=== PATIENT | female | born 1995 | race African-American/Black ===

== ENCOUNTER 2023-05-10 14:47 | Emergency (ER) | payer OTHER, SELFPAY ==
[2023-05-10 14:54] VITALS: BP 122/86
[2023-05-10 15:18] LABS: % Basophils 1.1 % (0-2); % Eosinophils 3.8 % (0-6); % Immature Granulocytes 0.2 % (0-0.5); % Lymphocytes 54.2 % (20.5-51.1); % Monocytes 8.8 % (1.7-9.3); % Neutrophils 31.9 % (42.2-75.2); Absolute Basophils 0.1 10^3/uL (0-0.2); Absolute Eosinophils 0.2 10^3/uL (0-0.7); Absolute Monocytes 0.5 10^3/uL (0.1-0.6); Absolute Neutrophils 1.8 10^3/uL (1.4-6.5); Hemoglobin 13.3 g/dL (12.0-16.0); Mean Corp Hgb Conc. 34.1 g/dL (33.0-37.0); Mean Corpuscular Hgb 32.3 pg (27.0-31.0); Mean Corpuscular Volume 94.7 fL (81.0-99.0); Mean Platelet Volume 9.3 fL (7.4-10.4); Nucleated Red Blood Cells % 0 %; Platelet Count 358 10^3/uL (130-400); Red Blood Cell Count 4.12 10^6/uL (4.20-5.40); Red Cell Dist. Width 11.8 % (11.5-14.5); White Blood Cell Count 5.6 10^3/uL (4.8-10.8)
--- NOTE | 2023-05-10 15:24 | ED.GENMED ---
History of Present Illness
General
Chief Complaint: Musculo-Skeletal Complaint
Time Seen by Provider: 05/10/23 15:09
Travel History
Have you had any contact with someone who has COVID-19?: No
Do you have any symptoms of coronavirus? Fever > 100 degrees, chills, cough, shortness of breath, sore throat, loss of taste or smell, muscle aches, or headache?: No
History of Present Illness
History of Present Illness:
27-year-old female with history of A-fib presents the emergency department for evaluation of bilateral leg pain has been ongoing for the past 6 months. She reports pain to the upper gluteal region radiating to the hips and occasionally down to the
feet. Pain is worse with prolonged sitting or prolonged walking. She has been taking gabapentin as well as occasional anti-inflammatories without relief. Has not seen her primary care physician for this in quite some time. Denies any falls or
trauma. Denies any loss of bladder or bowel function. No night sweats or weight loss
Review of Systems
Review of Systems
Allergies reviewed?: Yes
All Other Systems: ROS reviewed and negative except as documented in HPI and ROS
Phy Exam
Physical Exam
Physical Exam:
GEN: Well appearing, writhing in pain, unable to sit still
HEENT: Oral mucosa moist, no scleral icterus
Cardiac: Regular rate
Lung: No respiratory distress, no tachypnea
MSK: No gross deformity or injuries. Tender diffusely along bilateral paraspinous musculature into the gluteal region, negative straight leg raise bilaterally
Skin: Good color, no pallor or jaundice, no rashes
Neuro: AO x3, moves all extremities freely. Bilateral lower extremity strength and sensation is intact in all march and symmetric
Psych: Calm, cooperative
Course
Orders/Labs/Results
Orders:
Orders
05/10/23 14:58
Test Result ONCE
05/10/23 15:01
CMP [Comprehensive Metabolic Panel] Urgent
Complete Blood Count/With Diff Urgent
HCG, Serum Qualitative Screen Urgent
05/10/23 15:55
Acetaminophen [Tylenol] 650 mg PO NOW STA
Ketorolac [Toradol] 30 mg IM NOW STA
Lidocaine [Lidocaine 4% Patch] 1 patch TOPICAL NOW STA
Abnormal Lab Results
05/10/23
15:01
RBC 4.12 L 10^6/uL
(4.20-5.40)
MCH 32.3 H pg
(27.0-31.0)
Neutrophils % 31.9 L %
(42.2-75.2)
Lymphocytes % 54.2 H %
(20.5-51.1)
05/10/23 15:01
05/10/23 15:01
Vital Signs
Initial and Last Documented VS:
Initial Vital Signs
Temp Pulse Resp BP Pulse Ox
98.2 F 98 16 122/86 98
05/10/23 14:54 05/10/23 14:54 05/10/23 14:54 05/10/23 14:54 05/10/23 14:54
Last Documented Vital Signs
Temp Pulse Resp BP Pulse Ox
98.2 F 80 16 122/86 96
05/10/23 14:54 05/10/23 16:38 05/10/23 14:54 05/10/23 14:54 05/10/23 16:38
MDM/Problems Addressed
MDM/Problems Addressed:
Suspect acute lumbar radiculopathy. Has no red flag neurologic symptoms warranting emergent MRI. Given that she has been failing anti-inflammatories we will try course of steroids, encouraged her to see her primary care physician to discuss an
outpatient MRI given the duration of her symptoms
*Critical Care Note
Total Time (30-74mins, 75-104mins- exclusive of procedures): Not Applicable
ED Attending Note
-
Portions of this chart may have been created with voice recognition software.� Occasional wrong word or��sound alike� substitutions may have occurred due to the inherent limitations of voice recognition software.
Discharge Plan
Departure
Patient Disposition: Home (Routine Discharge)
Date of Disposition: 05/10/23
Time of Disposition: 16:26
Patient with high blood pressure during this ER visit?: No
Discharge Problem:
Acute lumbar radiculopathy
Instructions: Low Back Pain ED
Prescriptions:
New
methylprednisolone [Medrol (Jose)] 4 mg tablets,dose pack
See Rx Instructions .ROUTE .COMPLEX Qty: 21 0RF
Rx Instructions:
orally per package directions
Referrals:
Dima Reyez MD [Family Provider] -
Activity Restrictions/Additional Instructions:
Discuss getting a lumbar MRI with your primary care physician
Interventions
Interventions:
*Risk Screen - Suicide Last Done: 05/10/23 16:38
*General Assessment Last Done: 05/10/23 14:54
*Neglect/Abuse Screening Last Done: 05/10/23 16:38
*ED COVID-19 Vaccine History Last Done: 05/10/23 14:54
*Nursing Disposition Last Done: 05/10/23 16:38
ED-Musculoskeletal Assessment Last Done: 05/10/23 15:13
Discharge Date and Time
Discharge Date/Time: 05/10/23 16:39
[2023-05-10 15:28] LABS: ALT (SGPT) 13 U/L (0-35); AST (SGOT) 19 U/L (14-36); Albumin 4.3 g/dl (3.5-5.0); Alkaline Phosphatase 45 U/L (38-126); Blood Urea Nitrogen 14 mg/dl (7-17); Calcium 10.1 mg/dl (8.4-10.2); Carbon Dioxide 30 mmol/L (22-30); Chloride 100 mmol/L (98-107); Glucose 93 mg/dl (70-99); Potassium 4.1 mmol/L (3.5-5.1); Sodium 136 mmol/L (135-145); Total Protein 7.2 g/dl (6.3-8.2); eGFR > 60.00
[2023-05-10 15:36] LABS: HCG, Serum Qualitative Screen Negative
[2023-05-10] MEDS: LIDOCAINE 4% PATCH 1 PATCH TOPICAL (16:22)
[2023-05-10] MEDS: TYLENOL 650 MG PO (16:23)
== END 2023-05-10 16:39 | disposition home or self-care (01) ==
LOC: EMR 14:47
PROVIDERS: Emergency Medicine; EMERGENCY PHYSICIAN Emergency Medicine; FAMILY PHYSICIAN Internal Medicine
DX: M54.16 Radiculopathy, lumbar region (principal); I48.91 Unspecified atrial fibrillation
CPT/HCPCS: 99283; 80053; 84703; 85025

== ENCOUNTER 2023-05-25 09:15 | Emergency (ER) | payer OTHER, SELFPAY ==
--- NOTE | 2023-05-25 10:04 | ED.GENMED ---
History of Present Illness
General
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
Source: patient
Time Seen by Provider: 05/25/23 10:01
Nursing documentation reviewed up to this point in time: agreed with
Travel History
Have you had any contact with someone who has COVID-19?: No
Do you have any symptoms of coronavirus? Fever > 100 degrees, chills, cough, shortness of breath, sore throat, loss of taste or smell, muscle aches, or headache?: No
History of Present Illness
History of Present Illness:
This is a 27-year-old female with no past medical history presenting emergency department today with intermittent vaginal pain that started yesterday. She states that she is currently on her. And nearing the end of her menstrual cycle, when she
went to pull out her tampon yesterday and started to experience a lot of sharp pain an hour later. Patient states that when she pulled out the tampon, the tampon was fully intact and she denies any vaginal foreign body. Patient states that the
pain comes multiple times per day, and she states that the last time she had pain was about an hour ago. She states that the pain lasts 1 to 2 minutes. She denies any pelvic pain, abdominal pain, fevers or chills, dysuria, chance of STD/STI,
chance of . She states that she recently started using a new vaginal wash about a week ago and has been using it every single day. Patient denies any vaginal puritis.
Review of Systems
Review of Systems
All Other Systems: ROS reviewed and negative except as documented in HPI and ROS
Phy Exam
Physical Exam
Physical Exam:
General: Patient is well-appearing in no acute distress
Skin: Warm and dry, no rashes or lesions
Head: normocephalic, atraumatic
Cardiac: Regular rate and rhythm
Pulm: Normal respiratory effort
Abdomen: Abdomen is nondistended, nontender, no palpable masses
Genitourinary: External--No vulvar lesions or masses, no erythema. Scant blood seen at vaginal introitus. No adnexal tenderness. Internal-- Pain with speculum insertion. Vaginal mucosa pink with no lesions, no abrasions, erythema. No foreign body
within the vaginal vault. Menstrual blood seen at cervical os. No cervical lesions. No cervical motion tenderness.
Neuro: AAOx3. CN II-XII intact.
Course
Orders/Labs/Results
Orders:
Orders
05/25/23 10:22
Test Result ONCE
05/25/23 10:30
Beta Hcg Urine Qualitative Screen [HCG, Urine Qualitative Screen] Urgent
Date Specimen was Collected: 05/25/23
Time Specimen was Collected: 10:37
05/25/23 10:45
Urinalysis Reflex To Culture Urgent
Date Specimen was Collected: 05/25/23
Time Specimen was Collected: 10:37
Urine Microscopic Reflex Cult Urgent
Abnormal Lab Results
05/25/23
10:45
Ur Occult Blood Reflex 3+ A
(Negative)
Urine Bilirubin 1+ A
(Negative)
Urine RBC 3-6 A /HPF
(0-2)
Urine Bacteria (Reflex) Few A
(Negative)
Vital Signs
Initial and Last Documented VS:
Initial Vital Signs
Temp Pulse Resp Pulse Ox
98.2 F 71 18 100
05/25/23 09:21 05/25/23 09:21 05/25/23 09:21 05/25/23 09:21
Last Documented Vital Signs
Temp Pulse Resp BP Pulse Ox
98.2 F 64 18 128/67 100
05/25/23 09:21 05/25/23 11:53 05/25/23 11:53 05/25/23 11:53 05/25/23 11:53
MDM/Problems Addressed
Differential Diagnosis Includes:
Differentials include chemical contact vaginitis, contact dermatitis, UTI, vaginismus, bacterial vaginosis, pelvic floor spasm
MDM/Problems Addressed:
vaginal pain
Chronic conditions affecting care:
n/a
Acute Exacerbation and/or Progression of Chronic Illness:
n/a
*Pulse Oximetry
Patient hypoxic: no
*Critical Care Note
Total Time (30-74mins, 75-104mins- exclusive of procedures): Not Applicable
Data Reviewed
Review of Other/Old Records Reveals: Records (reviewed record from 05/10/23) and Discharge Summary (no recent hospitalizations in [facility] to review)
Source: patient and records
Patient Management
Escalation/DeEscalation of care consider admission/obs:
This is a 27-year-old female with no past medical history presenting emergency department today with intermittent vaginal pain that started yesterday. It started after taking out a dry tampon. She states that she also started using a new vaginal
wash recently, and is using it daily. Patient denies fevers or chills, abdominal pain, pelvic pain, dysuria, chance of STDs/STIs, vaginal foreign body. On exam, she has no labial lesions or masses, her vaginal mucosa is pink, there are no
abrasions or lesions, no erythema, and her cervix is without lesions. She did have some pain upon insertion of the speculum. Her urinalysis was negative for UTI. I suspect her current symptoms are a result of vaginal dryness from the vaginal wash
she has started using. I advised patient to hold off on using the wash for now to see if that improves her symptoms, and advised her to follow-up with her BONDING MACHINE TENDER. Patient states that she recently moved from [place] and her old OBGYN is
located within [place], so I provided her with a referral for new [facility]ING [facility]ACHINE T[facility] within [place]. She will follow up.
ED Attending Note
-
Portions of this chart may have been created with voice recognition software.� Occasional wrong word or��sound alike� substitutions may have occurred due to the inherent limitations of voice recognition software.
Discharge Plan
Departure
Patient Disposition: Home (Routine Discharge)
Date of Disposition: 05/25/23
Time of Disposition: 11:16
Patient with high blood pressure during this ER visit?: No
Condition: Good
Discharge Problem:
Vaginal pain
Instructions: Vaginitis, BLOOD PRESSURE
Prescriptions:
No Action
methylprednisolone [Medrol (Jose)] 4 mg tablets,dose pack
See Rx Instructions .ROUTE .COMPLEX Qty: 21 0RF
Rx Instructions:
orally per package directions
Referrals:
Dima Reyez MD [Family Provider] -
Dora Correia DO [Active] - Call in 1-3 days for appt
Activity Restrictions/Additional Instructions:
I have attached a referral for you for a new OBGYN here in [place]. Please call to schedule an appointment.
Please return to the emergency department should you have fevers or chills, difficulty urinating, pain with urination, pelvic pain, or other concerning signs or symptoms.
Please follow up with your primary care provider.
Interventions
Interventions:
*Risk Screen - Suicide Last Done: 05/25/23 09:21
*General Assessment Last Done: 05/25/23 09:21
*Neglect/Abuse Screening Last Done: 05/25/23 09:21
ED- Fall Risk Assessment Last Done: 05/25/23 11:54
*ED COVID-19 Vaccine History Last Done: 05/25/23 11:54
*Nursing Disposition Last Done: 05/25/23 11:54
ED-Female Genitourinary Assessment Last Done: 05/25/23 11:52
Discharge Date and Time
Discharge Date/Time: 05/25/23 11:55
[2023-05-25 10:44] LABS: Urine Albumin Negative (Neg - Trace); Urine Bilirubin 1+ (Negative); Urine Character Clear (Clear); Urine Color Yellow; Urine Glucose Negative (Negative); Urine Ketone Negative (Negative); Urine Leukocyte Negative (Negative); Urine Nitrite Negative (Negative); Urine Occult Blood 3+ (Negative); Urine Urobilinogen 1+ (Neg - 1+)
[2023-05-25 10:55] LABS: HCG, Urine Qualitative Screen Negative
[2023-05-25 11:10] LABS: Urine Mucus Few
[2023-05-25 11:11] LABS: Urine Bacteria Few (Negative); Urine White Cell None Seen /HPF (0-5)
[2023-05-25 11:53] VITALS: BP 128/67
== END 2023-05-25 11:55 | disposition home or self-care (01) ==
LOC: EMR 09:15
PROVIDERS: Physician Assistant; EMERGENCY PHYSICIAN Emergency Medicine; FAMILY PHYSICIAN Internal Medicine
DX: R10.2 Pelvic and perineal pain (principal)
CPT/HCPCS: 99282; 81003; 81015; 81025

== ENCOUNTER 2023-07-09 13:07 | Emergency (ER) | payer OTHER, SELFPAY ==
[2023-07-09 13:10] VITALS: BP 123/83
[2023-07-09 13:26] LABS: % Eosinophils 2.5 % (0-6); % Immature Granulocytes 0.2 % (0-0.5); % Lymphocytes 43.8 % (20.5-51.1); % Monocytes 7.8 % (1.7-9.3); % Neutrophils 44.7 % (42.2-75.2); Absolute Basophils 0.1 10^3/uL (0-0.2); Absolute Eosinophils 0.1 10^3/uL (0-0.7); Absolute Lymphocytes 2.1 10^3/uL (1.2-3.4); Absolute Monocytes 0.4 10^3/uL (0.1-0.6); Absolute Neutrophils 2.1 10^3/uL (1.4-6.5); Hematocrit 35.4 % (37.0-47.0); Mean Corp Hgb Conc. 33.9 g/dL (33.0-37.0); Mean Corpuscular Hgb 32.3 pg (27.0-31.0); Mean Corpuscular Volume 95.2 fL (81.0-99.0); Mean Platelet Volume 8.9 fL (7.4-10.4); Nucleated Red Blood Cells % 0 %; Platelet Count 354 10^3/uL (130-400); Red Blood Cell Count 3.72 10^6/uL (4.20-5.40); Red Cell Dist. Width 11.6 % (11.5-14.5); White Blood Cell Count 4.8 10^3/uL (4.8-10.8)
[2023-07-09 13:37] LABS: HCG, Serum Qualitative Screen Negative
[2023-07-09 13:41] LABS: ALT (SGPT) 12 U/L (0-35); AST (SGOT) 23 U/L (14-36); Albumin 4.2 g/dl (3.5-5.0); Alkaline Phosphatase 48 U/L (38-126); Blood Urea Nitrogen 22 mg/dl (7-17); Calcium 9.5 mg/dl (8.4-10.2); Carbon Dioxide 27 mmol/L (22-30); Chloride 105 mmol/L (98-107); Glucose 86 mg/dl (70-99); Potassium 4.5 mmol/L (3.5-5.1); Sodium 136 mmol/L (135-145); Total Bilirubin 0.6 mg/dl (0.2-1.3); eGFR > 60.00
[2023-07-09 13:51] LABS: Troponin I < 0.012 ng/ml
[2023-07-09] MEDS: MOTRIN 600 MG PO (16:04)
[2023-07-09 16:12] VITALS: BP 111/70
[2023-07-09 17:00] VITALS: BP 101/71
[2023-07-09 17:09] LABS: Troponin I < 0.012 ng/ml
[2023-07-09 17:26] LABS: D-Dimer < 0.27 ug/mlFEU (0.00-0.50)
[2023-07-09 18:00] VITALS: BP 109/70
--- NOTE | 2023-07-09 18:45 | ED.GENMED ---
History of Present Illness
General
Chief Complaint: Chest Pain
Source: patient
Time Seen by Provider: 07/09/23 15:45
Travel History
Have you had any contact with someone who has COVID-19?: No
Do you have any symptoms of coronavirus? Fever > 100 degrees, chills, cough, shortness of breath, sore throat, loss of taste or smell, muscle aches, or headache?: No
History of Present Illness
History of Present Illness:
28-year-old female presents to the emergency room complaining of chest pain. Symptoms began couple days ago. Chest pains been pretty much constant. No shortness of breath but she does sometimes have pain with deep breath. Patient has a history
of atrial fibrillation for which she has had cardiac ablation. She does not take any medication at this time. Patient denies any abdominal pain. No fever or chills.
Phy Exam
Physical Exam
Physical Exam:
General: Awake, Alert, Oriented X3. No acute distress.
Vitals: unremarkable
Head: Atraumatic
Eyes: Pupils equal, EOMI
Throat: Airway intact, no exudates
Neck: Trachea midline
Lungs: Clear and equal b/l
Heart: Regular rate, no murmurs
Abd: Soft, Nontender, No pulsatile mass
Neuro: Nonfocal
Skin: Warm, dry, no rash
Extremities: pulses equal b/l, no edema
Scores
Heart Score for Chest Pain Patients
STEMI patient?: No
History: Slightly or Non-Suspicious
ECG: Normal
Age: </= 45 years
Risk Factors: No Risk Factors
Troponin: </= Normal Limit
Heart Score for Chest Pain Patients: 0
Heart Score Risk: 2.5% MACE over next 6 weeks
Course
Orders/Labs/Results
Orders:
Orders
07/09/23 13:13
Electrocardiogram (*1) Urgent
Reason for Study: Chest Pain
EKG- Treatment ONCE
07/09/23 13:14
Test Result ONCE
07/09/23 13:20
Complete Blood Count/With Diff Urgent
Comprehensive Metabolic Panel Urgent
HCG, Serum Qualitative Screen Urgent
Troponin I Urgent
07/09/23 16:01
Ibuprofen [Motrin] 600 mg .ROUTE .STK-MED ONE
07/09/23 16:04
Ibuprofen [Motrin] 600 mg PO NOW STA
07/09/23 16:11
D-Dimer Urgent
07/09/23 16:34
Troponin I Urgent
07/09/23 17:40
CR Chest - 2 Views Urgent
Comment:
Reason For Exam: chest pain
Abnormal Lab Results
07/09/23
13:20
RBC 3.72 L 10^6/uL
(4.20-5.40)
Hct 35.4 L %
(37.0-47.0)
MCH 32.3 H pg
(27.0-31.0)
BUN 22 H mg/dl
(7-17)
07/09/23 13:20
07/09/23 13:20
Vital Signs
Initial and Last Documented VS:
Initial Vital Signs
Temp Pulse Resp BP Pulse Ox
98.2 F 74 16 123/83 98
07/09/23 13:10 07/09/23 13:10 07/09/23 13:10 07/09/23 13:10 07/09/23 13:10
Last Documented Vital Signs
Temp Pulse Resp BP Pulse Ox
98.2 F 68 13 109/70 98
07/09/23 13:10 07/09/23 18:45 07/09/23 18:45 07/09/23 18:00 07/09/23 13:10
MDM/Problems Addressed
Differential Diagnosis Includes:
Costochondritis, pericarditis, PE, pneumothorax
MDM/Problems Addressed:
Patient presents with chest pain present for couple days. Labs show normal CBC essentially. Chemistries are essentially normal. D-dimer is normal. She is not . Chest x-ray shows no acute abnormality. EKG is normal. No evidence for an
unstable process. Patient stable for discharge home. Recommend Tylenol and/or ibuprofen for pain. I also considered abdominal source for discomfort. However she has no reproducible abdominal pain in the upper abdomen. LFTs are normal.
*Radiology
Radiology exam reviewed: radiology read reviewed
*Pulse Oximetry
Patient hypoxic: no
*EKG
Interpreted by ED Provider?: Yes
Interpretation: normal
Heart Rate: 78
Rate: normal
Rhythm: sinus
[place]: normal axis
Interval: normal interval
QRS Pattern: normal QRS
Ischemia: no ischemia
*Engineering Team Supervisor Interpretation
Rate: normal
Interpretation: normal
Heart Rate: 78
Rhythm: sinus
*Critical Care Note
Total Time (30-74mins, 75-104mins- exclusive of procedures): Not Applicable
ED Attending Note
-
Portions of this chart may have been created with voice recognition software.� Occasional wrong word or��sound alike� substitutions may have occurred due to the inherent limitations of voice recognition software.
Discharge Plan
Departure
Patient Disposition: Home (Routine Discharge)
Date of Disposition: 07/09/23
Time of Disposition: 18:46
Patient with high blood pressure during this ER visit?: No
Condition: Good
Discharge Problem:
Chest pain
Instructions: Chest Pain PCP Follow Up
Prescriptions:
No Action
methylprednisolone [Medrol (Jose)] 4 mg tablets,dose pack
See Rx Instructions .ROUTE .COMPLEX Qty: 21 0RF
Rx Instructions:
orally per package directions
Referrals:
NONE,* [Family Provider] -
Interventions
Interventions:
*Risk Screen - Suicide Last Done: 07/09/23 13:10
*General Assessment Last Done: 07/09/23 13:10
*Neglect/Abuse Screening Last Done: 07/09/23 13:10
ED- Fall Risk Assessment Last Done: 07/09/23 18:50
*ED COVID-19 Vaccine History Last Done: 07/09/23 18:50
*Nursing Disposition Last Done: 07/09/23 18:50
ED- Cardiac Assessment Last Done: 07/09/23 16:23
Discharge Date and Time
Discharge Date/Time: 07/09/23 18:51
Print Language: ITALIAN
== END 2023-07-09 18:51 | disposition home or self-care (01) ==
LOC: EMR 13:07
PROVIDERS: Emergency Medicine; EMERGENCY PHYSICIAN Emergency Medicine
DX: R07.9 Chest pain, unspecified (principal); I48.91 Unspecified atrial fibrillation
CPT/HCPCS: 99283; 71046; 80053; 84484; 84703; 85025; 85379; 93005

== ENCOUNTER 2023-09-23 03:21 | Emergency (ER) | payer OTHER, SELFPAY ==
[2023-09-23 03:23] VITALS: BP 144/92
[2023-09-23 04:28] VITALS: BP 124/68
--- NOTE | 2023-09-23 05:09 | ED.GENMED ---
History of Present Illness
General
Chief Complaint: Weakness
Source: patient
Exam Limitations: none
Time Seen by Provider: 09/23/23 03:58
Nursing documentation reviewed up to this point in time: agreed with
History of Present Illness
History of Present Illness:
This is a 28-year-old female who presents to the ED, ambulatory with concerns for intermittent biparietal headaches as well as bilateral leg weakness that she most notes when descending steps. She states she feels like her legs will 'give out' when
she goes down steps but has not suffered any falls. She has had ongoing near daily headaches but denies vision difficulty, no fever nor chills, no neck pain nor back pain, no sore throat, she denies sinus congestion nor rhinorrhea, no cough nor
shortness of breath. Symptoms have been ongoing for at least the past 3 months and she admits to undergoing a CT of the head at an ED in [facility] 7 to 8 months ago and was told that she has 'calcium deposits' on her brain. She is concerned
for a brain tumor. She admits that she has not followed up with her PCP and does not recall being recommended to follow-up with a neurologist or any other specialist.
Upon review of records patient was evaluated in this ED February back pain which had been ongoing for at least 6 months prior to that ED visit. At that time she had been taking NSAIDs as well as gabapentin. Unremarkable ED evaluation.
She states she currently takes no medications. Low back pain has resolved
She has not been taking anything for her headaches.
She denies risk of .
Past History
Past History
ED Past Medical History: Arrthythmia (Atrial fibrillation)
ED Past Surgical History: Cardiac (A-fib ablation)
Social History
Tobacco: Non-smoker
Alcohol: None
Drug: None
Personal: Single
Living: with family
Employment: Employed
Family History
Family History: Other (Noncontributory)
Phy Exam
Physical Exam
Physical Exam:
GENERAL: 28-year-old female appears her stated age, bright and alert, pleasant, appears in no acute distress. Easily communicative.
EYE: pupils equal and reactive. Extraocular muscles intact anicteric
NECK: Supple, nontender, no meningismus, no significant adenopathy.
ENT: posterior pharynx is clear, oral mucosa is moist. TM clear b/l, nares have moderately boggy pale blue turbinates without rhinorrhea nor mucopus.
CARDIAC: Regular rate and rhythm. no murmur.
LUNGS: Clear breath sounds bilaterally, no acute respiratory distress, no wheezes/rales/rhonchi
ABDOMEN: Soft, nondistended, without focal tenderness, no r/g, normoactive BS.
NEUROLOGICAL: Alert and oriented x3, no focal neuro deficits. Motor strength is 5/5 bilaterally. Gross sensation is intact. Gait is figueroa and steady.
SKIN: Warm and dry, normal color, skin intact. No rash.
MUSCULOSKELETAL: No C/C/E. peripheral pulses are full and equal b/l. No palpable tenderness.
PSYCH: Normal and appropriate interaction.
Course
Orders/Labs/Results
Orders:
Orders
09/23/23 04:08
CT Head W/o Iv Contrast Urgent
Comment:
Reason For Exam: frequent headaches
Vital Signs
Initial and Last Documented VS:
Initial Vital Signs
Temp Pulse Resp BP Pulse Ox
97.4 F 78 18 144/92 100
09/23/23 03:23 09/23/23 03:23 09/23/23 03:23 09/23/23 03:23 09/23/23 03:23
Last Documented Vital Signs
Temp Pulse Resp BP Pulse Ox
97.4 F 73 18 124/68 99
09/23/23 03:23 09/23/23 04:28 09/23/23 04:28 09/23/23 04:28 09/23/23 04:28
MDM/Problems Addressed
Differential Diagnosis Includes:
Patient presents with intermittent but near daily headaches as well as a sense that her legs are going to 'give out' only noticed when going down steps.
Symptoms have been ongoing for 3 months or more and I suspect longer as she reports having a CT of the head 7 to 8 months ago at another institution.
Concerning that symptoms may be worsening over the past 3 months.
No focal neurodeficits appreciated on exam, strength is equal and patient ambulatory with steady unaided gait.
Will check CT of the head.
Chronic conditions affecting care: Arrhythmia (Prior history of A-fib status post A-fib ablation. No report of recurrence.)
*Radiology
Radiology exam reviewed: radiology read reviewed (CT of the head shows no acute findings.)
*Pulse Oximetry
Patient hypoxic: no
*Critical Care Note
Total Time (30-74mins, 75-104mins- exclusive of procedures): Not Applicable
Update Note
Update Note:
09/23/2023 0544 AM
Patient sleeping when undisturbed. Continue to appear comfortable.
CT of the head is unremarkable.
Upon review of epic chart patient has presented to other ED's with similar complaints of ongoing headache with unremarkable CTs of the head May 2021 as well as March 2022.
Encouraged to follow-up with her PCP for chronic headaches.
ED Attending Note
-
Portions of this chart may have been created with voice recognition software.� Occasional wrong word or��sound alike� substitutions may have occurred due to the inherent limitations of voice recognition software.
Discharge Plan
Departure
Patient Disposition: Home (Routine Discharge)
Date of Disposition: 09/23/23
Time of Disposition: 05:43
Patient with high blood pressure during this ER visit?: No
Condition: Good
Discharge Problem:
Chronic daily headache
Instructions: Headache, Adult (DC)
Prescriptions:
No Action
methylprednisolone [Medrol (Jose)] 4 mg tablets,dose pack
See Rx Instructions .ROUTE .COMPLEX Qty: 21 0RF
Rx Instructions:
orally per package directions
Referrals:
NONE,* [Family Provider] -
Activity Restrictions/Additional Instructions:
Follow-up with your primary care physician for further evaluation of your frequent headaches.
Interventions
Interventions:
*Risk Screen - Suicide Last Done: 09/23/23 03:23
*Neglect/Abuse Screening Last Done: 09/23/23 03:23
ED- Cardiac Assessment Last Done: 09/23/23 03:49
ED- Neurological Assessment Last Done: 09/23/23 03:49
ED- Pulmonary Assessment Last Done: 09/23/23 03:49
Discharge Date and Time
Print Language: TRINIDADIAN
== END 2023-09-23 05:56 | disposition home or self-care (01) ==
LOC: EMR 03:21
PROVIDERS: EMERGENCY PHYSICIAN Emergency Medicine
DX: R51.9 Headache, unspecified (principal)
CPT/HCPCS: 99284; 70450

== ENCOUNTER 2023-12-22 12:40 | Emergency (ER) | payer OTHER, SELFPAY ==
[2023-12-22 12:46] VITALS: BP 153/92
--- NOTE | 2023-12-22 13:23 | ED.GENMED ---
History of Present Illness
General
Chief Complaint: Abdominal Pain
Source: patient
Time Seen by Provider: 12/22/23 13:04
History of Present Illness
History of Present Illness:
28yoF with a history of atrial fibrillation s/p ablation x 2 not currently on any medications presenting for evaluation of nausea and vomiting. She reports nausea for the past 3 days which she did not think anything of initially as she was scheduled
to get her period. She also reports suprapubic pressure, urinary frequency, and urgency. Her urine appears a 'milky orange' color. Patient is currently 3 days late for her menstrual period. She took 2 home tests this morning which were
faintly positive so she decided to come to the ED. She denies any vaginal bleeding, vaginal discharge, fevers.
Past History
Past History
ED Past Medical History: Arrthythmia (Atrial fibrillation)
ED Past Surgical History: Cardiac (A-fib ablation)
Social History
Tobacco: Non-smoker
Alcohol: None
Drug: None
Personal: Single
Living: with family
Employment: Employed
Family History
Family History: Other (Noncontributory)
Phy Exam
General Physical Exam
General Presentation: well appearing and no apparent distress
General age: appears stated age
General Skin: warm and dry
General Habitus: normal
General Mental: alert
ENT Exam
ENT Exam: normocephalic
Cardiovascular Exam
Cardiovascular Exam: regular rate/rhythm
Pulmonary Exam
Pulmonary Exam: no respiratory distress
Gastrointestinal Exam
Gastrointestinal Exam: soft, non distended and tender (Minimal tenderness in suprapubic region. No rebound or guarding. No CVA tenderness. )
[place] Coma Scale
Eye Opening: Spontaneous
Verbal Response: Oriented
Motor Response: Obeys Commands
GCS Total Score: 15
Skin Exam
Skin Exam: normal color and warm/dry
Psychiatric Exam
Psychiatric Exam: normal mood/affect
Course
Orders/Labs/Results
Orders:
Orders
12/22/23 13:23
0.9% Sodium Chloride 1000 ml [Nss] 1,000 ml IV BOLUS
Ondansetron Injectable [Zofran] 4 mg IV NOW STA
12/22/23 14:25
Complete Blood Count/With Diff Urgent
Comprehensive Metabolic Panel Urgent
HCG, Beta Quantitative [Beta HCG Quantitative] Urgent
Is this a screen?: No
Urinalysis Reflex To Culture Urgent
Date Specimen was Collected: 12/22/23
Time Specimen was Collected: 14:23
12/22/23 15:43
Add On - Microbiology Urgent
Tests Added?: Urine culture
12/22/23 15:48
Chlamydia/GC by PCR Urgent
JEFF Source: Urine
Specimen Description:
Source:: URINE
Date Specimen was Collected: 12/22/23
Time Specimen was Collected: 15:45
Urine Culture Urgent
JEFF Source: U
Specimen Description:
Date Specimen was Collected: 12/22/23
Time Specimen was Collected: 15:45
Abnormal Lab Results
12/22/23
14:25
RBC 3.92 L 10^6/uL
(4.20-5.40)
Hct 36.2 L %
(37.0-47.0)
MCH 31.1 H pg
(27.0-31.0)
Urine Ketones 2+ A
(Negative)
12/22/23 14:25
12/22/23 14:25
Vital Signs
Initial and Last Documented VS:
Initial Vital Signs
Temp Pulse Resp BP Pulse Ox
98.3 F 77 18 153/92 99
12/22/23 12:46 12/22/23 12:46 12/22/23 12:46 12/22/23 12:46 12/22/23 12:46
Last Documented Vital Signs
Temp Pulse Resp BP Pulse Ox
98.3 F 78 18 116/77 100
12/22/23 12:46 12/22/23 15:52 12/22/23 15:52 12/22/23 14:30 12/22/23 15:52
MDM/Problems Addressed
Differential Diagnosis Includes:
28yoF here with nausea and UTI symptoms x 3 days. Also had a questionable positive test at home and is currently late for her menses. She is afebrile and hemodynamically stable. She is well appearing in no distress. There is minimal
suprapubic tenderness on exam. Differential diagnosis includes but is not limited to: early , morning sickness, UTI, dehydration
Initial ED plan: Check CBC, CMP, quantitative HCG, and UA. IV Zofran and fluid bolus.
*Critical Care Note
Total Time (30-74mins, 75-104mins- exclusive of procedures): Not Applicable
Update Note
Update Note:
HCG is negative. Labs unremarkable including normal white count, renal function, LFTs, and lipase. No signs of infection on urinalysis. Patient denies any vaginal discharge. GC/chlamydia testing and urine culture added for completeness. Patient
requesting to be discharged so that she may strip picker her son from school. She was given a prescription for Zofran. Advised follow-up with [facility] and ED return precautions discussed. She was discharged in stable condition.
ED Attending Note
-
Portions of this chart may have been created with voice recognition software.� Occasional wrong word or��sound alike� substitutions may have occurred due to the inherent limitations of voice recognition software.
Discharge Plan
Departure
Patient Disposition: Home (Routine Discharge)
Date of Disposition: 12/22/23
Time of Disposition: 15:43
Patient with high blood pressure during this ER visit?: No
Discharge Problem:
Nausea, Urinary urgency
Instructions: Nausea and vomiting in adults
Prescriptions:
New
ondansetron 4 mg tablet,disintegrating
4 mg PO Q6H PRN (Reason: nausea and vomiting) Qty: 20 0RF
No Action
methylprednisolone [Medrol (Jose)] 4 mg tablets,dose pack
See Rx Instructions .ROUTE .COMPLEX Qty: 21 0RF
Rx Instructions:
orally per package directions
Referrals:
Jerica Conklin, DO [Active] -
NONE,* [Family Provider] -
Activity Restrictions/Additional Instructions:
Your blood test was negative.
Take Zofran as needed for nausea.
Please follow-up with OBGYN. Return to the ER with any worsening symptoms.
Interventions
Interventions:
*Risk Screen - Suicide Last Done: 12/22/23 12:48
*General Assessment Last Done: 12/22/23 12:48
*Neglect/Abuse Screening Last Done: 12/22/23 12:48
ED- Fall Risk Assessment Last Done: 12/22/23 15:36
*Nursing Disposition Last Done: 12/22/23 15:52
CR-Aabwiz-Nywbthgcei Assessment Last Done: 12/22/23 14:29
Discharge Date and Time
Discharge Date/Time: 12/22/23 15:53
Print Language: DANISH
[2023-12-22] MEDS: NSS 1000 IV (14:25)
[2023-12-22] MEDS: ZOFRAN 4 MG IV (14:27)
[2023-12-22 14:30] VITALS: BP 116/77
[2023-12-22 14:32] LABS: % Basophils 0.6 % (0-2); % Eosinophils 2.5 % (0-6); % Immature Granulocytes 0.2 % (0-0.5); % Monocytes 5.6 % (1.7-9.3); % Neutrophils 62.1 % (42.2-75.2); Absolute Eosinophils 0.1 10^3/uL (0-0.7); Absolute Lymphocytes 1.5 10^3/uL (1.2-3.4); Absolute Monocytes 0.3 10^3/uL (0.1-0.6); Absolute Neutrophils 3.2 10^3/uL (1.4-6.5); Hematocrit 36.2 % (37.0-47.0); Hemoglobin 12.2 g/dL (12.0-16.0); Mean Corp Hgb Conc. 33.7 g/dL (33.0-37.0); Mean Corpuscular Hgb 31.1 pg (27.0-31.0); Mean Corpuscular Volume 92.3 fL (81.0-99.0); Mean Platelet Volume 9.5 fL (7.4-10.4); Nucleated Red Blood Cells % 0 %; Platelet Count 302 10^3/uL (130-400); Red Blood Cell Count 3.92 10^6/uL (4.20-5.40); Red Cell Dist. Width 11.7 % (11.5-14.5); White Blood Cell Count 5.2 10^3/uL (4.8-10.8)
[2023-12-22 14:38] LABS: Urine Albumin Trace (Neg - Trace); Urine Bilirubin Negative (Negative); Urine Character Clear (Clear); Urine Color Yellow; Urine Glucose Negative (Negative); Urine Ketone 2+ (Negative); Urine Leukocyte Negative (Negative); Urine Nitrite Negative (Negative); Urine Occult Blood Negative (Negative); Urine Urobilinogen 1+ (Neg - 1+)
[2023-12-22 14:54] LABS: ALT (SGPT) 12 U/L (0-35); AST (SGOT) 19 U/L (14-36); Albumin 4.2 g/dl (3.5-5.0); Alkaline Phosphatase 49 U/L (38-126); Blood Urea Nitrogen 15 mg/dl (7-17); Calcium 9.6 mg/dl (8.4-10.2); Carbon Dioxide 26 mmol/L (22-30); Chloride 107 mmol/L (98-107); Glucose 90 mg/dl (70-99); Potassium 4.7 mmol/L (3.5-5.1); Sodium 140 mmol/L (135-145); Total Bilirubin 0.8 mg/dl (0.2-1.3); Total Protein 6.8 g/dl (6.3-8.2); eGFR > 60.00
[2023-12-22 15:09] LABS: Beta HCG Quantitative < 2.39 mIU/ml
== END 2023-12-22 15:53 | disposition home or self-care (01) ==
LOC: EMR 12:40
PROVIDERS: Physician Assistant; EMERGENCY PHYSICIAN Student in an Organized Health Care Education/Training Program
DX: R39.15 Urgency of urination (principal); R11.2 Nausea with vomiting, unspecified; R10.30 Lower abdominal pain, unspecified; R35.0 Frequency of micturition; I48.91 Unspecified atrial fibrillation
CPT/HCPCS: 99284; 96374; 96361; 80053; 81003; 84702; 85025; 87086; 87491; 87591